=== PATIENT | male | born 1980 ===

== ENCOUNTER → 2021-04-02 | Outpatient (REF) ==
--- NOTE | 2021-04-03 01:52 | REPPI ---
INDICATION: DISABILITY DIAGNOSIS DETERMINATION COMPARISON: None. TECHNIQUE: AP, lateral, coned-down views of the lumbar spine. FINDINGS: Three views of the lumbosacral spine demonstrate satisfactory alignment and lordosis without acute fracture / compression injury or subluxation. Moderate/early advanced degenerative changes include endplate sclerosis, osteophytosis, disc space narrowing, and facet hypertrophy. Findings most pronounced at L5-S1. IMPRESSION: 1. No acute fracture / compression injury or subluxation. 2. 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 <Electronically signed by Jamal Lopez > 04/03/21 0149
== END ==
LOC: M PLAIMG 14:09
PROVIDERS: ATTEND Internal Medicine
DX: Z00.00 Encounter for general adult medical examination without abnormal findings (principal)